=== PATIENT | female | born 1995 | race Caucasian/White ===

== ENCOUNTER 2022-08-30 19:03 | Observation (INO) | payer OTHER ==
[~2022-08-30] VITALS: Ht 160 cm; Wt 59.0 kg
[2022-08-30] MEDS ORDERED: PRETAB PO (20:43)
[2022-08-30 21:04] VITALS: BP 128/76
[2022-08-30] MEDS ORDERED: MORPHINE SULFATE 4 MG/ML SYR IVP PRN (21:45)
[2022-08-30] MEDS ORDERED: NIFEdipine 10 MG CAPLF PO SCH (21:45)
[2022-08-30] MEDS ORDERED: LACTATED RINGERS 1,000 ML IV SCH (21:45)
[2022-08-30] MEDS ORDERED: BETAMETH ACET/BETAMETH NA PH 30 MG/5 ML VIAL IM ONE (21:45)
[2022-08-30 22:22] LABS: APPEARANCE,URINE CLEAR (CLEAR); BILIRUBIN,URINE NEGATIVE (NEGATIVE); BLOOD, URINE NEGATIVE (NEGATIVE); COLOR,URINE YELLOW (YELLOW); LEUKOCYTE ESTERASE ,URINE NEGATIVE (NEGATIVE); NITRITE, URINE NEGATIVE (NEGATIVE); PH,URINE 6.5 (5.0-9.0); UGLUCOSE NEGATIVE (NEGATIVE)
[2022-08-30 22:54] VITALS: BP 111/66
[2022-08-31] MEDS ORDERED: NIFEdipine 10 MG CAPLF PO SCH
== END 2022-08-31 04:30 | disposition home or self-care (01) ==
LOC: MLD 19:03 → MFCC 21:53
PROVIDERS: ADMIT Obstetrics & Gynecology; ATTEND Obstetrics & Gynecology
DX: O99.891 Other specified diseases and conditions complicating pregnancy (principal); M54.9 Dorsalgia, unspecified; Z20.822 Contact with and (suspected) exposure to COVID-19; Z3A.24 24 weeks gestation of pregnancy
CPT/HCPCS: 36415; 59025; 81000; 81003; 82731; 87426; 96360; 96361; 96372; G0378; J0702; J7120

== ENCOUNTER 2023-01-02 18:52 | Emergency (ER) | payer OTHER ==
[~2023-01-02] VITALS: Ht 160 cm; Wt 56.2 kg
[~2023-01-02 18:52] MED LIST: PRETAB PO
[2023-01-02 19:14] VITALS: BP 119/67; PULSE 110; RESP 16; TEMP 97.4; O2SAT 98
[2023-01-02] MEDS ORDERED: predniSONE 20 MG TAB PO ONE (21:20)
[2023-01-02] MEDS ORDERED: MORPHINE SULFATE 4 MG/ML SYR IM ONE (21:20)
[2023-01-02] MEDS ORDERED: ONDANSETRON 4 MG ODT PO ONE (21:20)
[2023-01-02] MEDS ORDERED: ACETAMINOPHEN EXTRA STRENGTH 500 MG TAB PO ONE (21:20)
[2023-01-02] MEDS ORDERED: ACYCLOVIR 200 MG CAP PO ONE (21:20)
[2023-01-02] MEDS ORDERED: METH4TAB1 PO (21:26)
[2023-01-02] MEDS ORDERED: HYDR-5191 PO (21:26)
[2023-01-02] MEDS ORDERED: GABA300C PO (21:26)
[2023-01-02] MEDS ORDERED: ACYC400T14 PO (21:26)
== END 2023-01-02 22:03 | disposition home or self-care (01) ==
LOC: MED 18:52
DX: B02.9 Zoster without complications (principal); R21 Rash and other nonspecific skin eruption; Z79.899 Other long term (current) drug therapy
CPT/HCPCS: 96372; 99284; J2270; J7512; Q0162